=== PATIENT | female | born 1995 | race Caucasian/White ===

== ENCOUNTER 2025-06-13 16:16 | Emergency (ER) | payer BC ==
[2025-06-13] MEDS ORDERED: Ondansetron PF 4 MG/2 ML Vial ONE (18:56)
[2025-06-13] MEDS ORDERED: Dexamethasone 10 MG/ML VIAL ONE (18:56)
[2025-06-13] MEDS ORDERED: Ketorolac Tromethamine 30 MG (1 mL) VIAL ONE (19:05)
[2025-06-13 19:15] LABS: #Basophils Less than 0.03 10x3/uL (0.0-0.2); #Eosinophils Less than 0.03 10x3/uL (0.0-0.5); #Monocytes 0.78 10x3/uL (0.0-1.1); #Neutrophils 6.16 10x3/uL (1.5-8.4); %Basophils 0.2 % (0.0-2.0); %Eosinophils 0.2 % (0.0-6.0); %Lymphocytes 18.4 % (18.0-47.0); %Monocytes 9.1 % (0.0-10.0); %Neutrophils 71.9 % (40.0-75.0); Hematocrit 44.0 % (34.9-44.5); Hemoglobin 15.5 g/dL (12.0-15.5); Mean Corpuscular Hemoglobin 29.6 pg (27.0-33.0); Mean Corpuscular Volume 84.0 fL (81.6-98.3); Platelet Count 293 10x3/uL (150-450); Red Blood Cell (RBC) Count 5.24 10x6/uL (3.90-5.03); White Blood Cell (WBC) Count 8.58 10x3/uL (3.5-10.5)
[2025-06-13] MEDS ORDERED: Albuterol 2.5 MG (3 mL) NEB ONE (19:19)
[2025-06-13 19:24] LABS: BHCG - Serum Negative (NEGATIVE); Pregs Control Background? CLEAR/WHITE (CLR/WHITE); Pregs Control Bar Appear? YES (CONTROL BAR)
[2025-06-13 19:31] LABS: ALT (SGPT) 232 U/L (Less than 34); AST (SGOT) 163 U/L (11-34); Albumin 4.5 g/dL (3.1-4.5); Alkaline Phosphatase 51 U/L (40-110); Anion Gap 18 mmol/L (10-20); BUN (Urea Nitrogen) 14 mg/dL (7.0-18.7); Bilirubin, Total 1.1 mg/dL (0.3-1.2); Calc. Creatinine Clearance 0 mL/min (70-130); Calcium 9.9 mg/dL (7.8-10.44); Carbon Dioxide 23 mmol/L (22-29); Chloride 102 mmol/L (98-107); Globulin 3.8 g/dL (2.4-3.5); Glucose 82 mg/dL (70-105); Lipase 17 U/L (8-78); Magnesium 2.0 mg/dL (1.6-2.6); Potassium 3.1 mmol/L (3.5-5.1); Sodium 140 mmol/L (136-145)
[2025-06-13] MEDS ORDERED: Potassium Bicarbonate/Cit Ac 25 MEQ TAB ONE (19:52)
== END 2025-06-13 19:20 ==
LOC: CSHERS 16:16
DX: J10.1 Influenza due to other identified influenza virus with other respiratory manifestations (principal); K31.84 Gastroparesis
CPT/HCPCS: 71045; 80053; 83690; 83735; 84703; 85025; 87428; 94644; 94760; 96374; 96375; J1100; J1885; J2405; J7611